=== PATIENT | female | born 1955 | race Caucasian/White ===

== ENCOUNTER 2017-08-31 09:46 | Day surgery (SDC) | payer BC, OTHER ==
[2017-08-31] VITALS (10 sets, daily range): BP systolic 139–169; BP diastolic 65–96; PULSE 57–91; TEMP 97.5–97.6
[~2017-08-31] VITALS: Ht 167.6 cm; Wt 76.4 kg
[~2017-08-31 09:46] MED LIST: CLONAZEPAM1 M1 PO; DOXYCYCLINE HY100 M5 PO; ESTRATEST H S PO; FLONASEALLERGY NS; KLONOPIN 1MG1 MG PO; LEVAQUIN 2250 MG/TAB; NORVASC 10MG10 MG PO; PROTONIX 40MG T40 MG PO; RESTASIS 0.4 M0.4 M1 OP; RESTASIS0.05% OP; TOPROL XL 25MG25 MG PO
[2017-08-31] MEDS ORDERED: COLACE 100100 MG/CAP PO (10:17)
== END 2017-08-31 16:10 | disposition home or self-care (01) ==
LOC: SDCO 09:46
DX: K80.50 Calculus of bile duct without cholangitis or cholecystitis without obstruction (principal); K83.8 Other specified diseases of biliary tract; R94.5 Abnormal results of liver function studies; K76.0 Fatty (change of) liver, not elsewhere classified; E78.00 Pure hypercholesterolemia, unspecified; I10 Essential (primary) hypertension; K21.9 Gastro-esophageal reflux disease without esophagitis; G47.33 Obstructive sleep apnea (adult) (pediatric); E11.9 Type 2 diabetes mellitus without complications; Z90.49 Acquired absence of other specified parts of digestive tract; Z90.710 Acquired absence of both cervix and uterus; Z88.3 Allergy status to other anti-infective agents; Z88.8 Allergy status to other drugs, medicaments and biological substances; Z88.2 Allergy status to sulfonamides; Z85.828 Personal history of other malignant neoplasm of skin
CPT/HCPCS: OP; C1769; J2405; J2704; J7120; Q9967

== ENCOUNTER 2018-10-25 12:44 | Day surgery (SDC) | payer BC, OTHER ==
[~2018-10-25] VITALS: Ht 167.6 cm; Wt 36.0 kg
[2018-10-25] VITALS (7 sets, daily range): BP systolic 134–169; BP diastolic 51–83; PULSE 48–58; TEMP 97.7–97.8
[~2018-10-25 12:44] MED LIST changes: +COLACE 100100 MG/CAP PO
--- NOTE | 2018-10-25 14:54 | NUR ---
TO RM 3 PER CART FROM ENDOSCOPY. USED STEP TO STEP DOWN FROM CART. AMBULATED TO RECLINER WITH ASSIST AND TOLERATED WELL. ELEVATED FEET AND LAYED HEAD BACK PER PATIENT COMFORT LEVEL. C/O PAIN 7/10 AND RECEIVED FENTANYL 50MG IV. AT BEDSIDE.
--- NOTE | 2018-10-25 15:05 | NUR ---
RECEIVED WATER AND TAKING SIPS
--- NOTE | 2018-10-25 15:20 | NUR ---
CONTINUES TO C/O PAIN 5/10 ACROSS MID ABDOMEN.
--- NOTE | 2018-10-25 15:35 | NUR ---
RECEIVED NEW WARM BLANKETS. RESTING QUIETLY. C/O OF THE SAME PAIN
--- NOTE | 2018-10-25 16:35 | NUR ---
OFFERED MORE PAIN MEDS SEVERAL TIMES SINCE SHE RETURNED TO HER RM. PATIENT STATED IT REALLY DIDN'T HELP WITH HER PAIN AND DENIES ANY FURTHER FENTANYL.
--- NOTE | 2018-10-25 17:20 | NUR ---
AMBULATED TO BATHROOM WITH ASSIST AND TOLERATED WELL.
--- NOTE | 2018-10-25 17:35 | NUR ---
RECEIVED DISCHARGE INSTRUCTIONS AND VERBALIZED UNDERSTANDING.
--- NOTE | 2018-10-25 17:45 | NUR ---
DISCHARGED PER WC BY NURSING STAFF TO PRIVATE CAR IN CARE OF GALEN
== END 2018-10-25 17:45 | disposition home or self-care (01) ==
LOC: SDCO 12:44
DX: K80.50 Calculus of bile duct without cholangitis or cholecystitis without obstruction (principal); K83.8 Other specified diseases of biliary tract; K76.0 Fatty (change of) liver, not elsewhere classified; I10 Essential (primary) hypertension; E78.00 Pure hypercholesterolemia, unspecified; K57.92 Diverticulitis of intestine, part unspecified, without perforation or abscess without bleeding; R01.1 Cardiac murmur, unspecified; K25.9 Gastric ulcer, unspecified as acute or chronic, without hemorrhage or perforation; Z79.899 Other long term (current) drug therapy; Z83.71 Family history of colonic polyps
CPT/HCPCS: OP; J2704; J3010; J7030

== ENCOUNTER → 2019-04-10 | Outpatient (CLI) | payer BC, OTHER | LOC: MC.RAD 12:38 | DX: N63.32 Unspecified lump in axillary tail of the left breast (principal) | CPT/HCPCS: G0279 ==

== ENCOUNTER 2020-01-31 06:00 | Day surgery (SDC) | payer BC, OTHER ==
[~2020-01-31] VITALS: Ht 167.6 cm; Wt 80.5 kg
[2020-01-31] VITALS (7 sets, daily range): BP systolic 152–166; BP diastolic 79–86; PULSE 52–79; TEMP 98.2
[2020-01-31] MEDS ORDERED: XARELTO20 MG PO (06:17)
[2020-01-31] MEDS ORDERED: RESTASIS 60VL OU (06:18)
[2020-01-31] MEDS ORDERED: LIDODERM 5% PATC1 EA TP (06:19)
--- NOTE | 2020-01-31 07:45 | NUR ---
PT TO BAY 1 ON CART FROM PROCEDURE ROOM 4. PT WALKS WITH ASSISTANCE FROM CART TO CHAIR IN BAY 1. PT VITAL SIGNS STABLE. CALL LIGHT NEXT TO PT.
--- NOTE | 2020-01-31 08:00 | NUR ---
PT EATING ICE CHIPS AND DRINKING WATER. VITAL SIGNS STABLE. CALL LIGHT NEXT TO PT.
--- NOTE | 2020-01-31 08:15 | NUR ---
PT EATING ICE CHIPS. DR MO IN BAY 1 TALKING TO PT. CALL LIGHT NEXT TO PT.
--- NOTE | 2020-01-31 08:20 | NUR ---
PT HAVING PAIN. DR MO VERBAL ORDER FOR FENTANYL 50 MG. NURSE LAURA BAH ADMINISTERED MEDICATION TO PT.
--- NOTE | 2020-01-31 08:30 | NUR ---
PT STATES PAIN IS FEELING BETTER. PT EATING ICE CHIPS AND DRINKING WATER. CALL LIGHT NEXT TO PT.
--- NOTE | 2020-01-31 09:00 | NUR ---
PT CONTINUES TO DENY C/O. VITAL SIGNS STABLE. CALL LIGHT NEXT TO PT.
--- NOTE | 2020-01-31 09:30 | NUR ---
PT STATES FEELING BETTER. PT RESTING IN CHAIR. VITAL SIGNS STABLE. PT CALL LIGHT NEXT TO PT.
--- NOTE | 2020-01-31 10:00 | NUR ---
PT DISCHARGE INSTRUCTIONS REVIEWED WITH PT. PT VERBALIZES UNDERSTANDING. IV DISCONTINUED. CATHETER INTACT.
--- NOTE | 2020-01-31 10:10 | NUR ---
PT CONTINUES TO DENY C/O. WHEELCHAIR RIDE BY NURSE TO PT CAR.
== END 2020-01-31 10:05 | disposition home or self-care (01) ==
LOC: SDCO 06:00
DX: K80.50 Calculus of bile duct without cholangitis or cholecystitis without obstruction (principal); K83.8 Other specified diseases of biliary tract; K31.9 Disease of stomach and duodenum, unspecified; K76.0 Fatty (change of) liver, not elsewhere classified; I10 Essential (primary) hypertension; E78.00 Pure hypercholesterolemia, unspecified; G47.33 Obstructive sleep apnea (adult) (pediatric); G89.29 Other chronic pain; E11.9 Type 2 diabetes mellitus without complications; K21.9 Gastro-esophageal reflux disease without esophagitis; Z88.8 Allergy status to other drugs, medicaments and biological substances; Z88.2 Allergy status to sulfonamides; Z88.5 Allergy status to narcotic agent; Z88.6 Allergy status to analgesic agent; Z83.71 Family history of colonic polyps; Z80.0 Family history of malignant neoplasm of digestive organs; Z90.710 Acquired absence of both cervix and uterus; Z90.49 Acquired absence of other specified parts of digestive tract; Z86.718 Personal history of other venous thrombosis and embolism; Z85.828 Personal history of other malignant neoplasm of skin; Z79.01 Long term (current) use of anticoagulants
CPT/HCPCS: C1769; J2704; J3010; J7120; Q9967